=== PATIENT | male | born 1955 | race Caucasian/White ===

== ENCOUNTER 2017-12-23 10:54 | Day surgery (SDC) | payer BC ==
[2017-12-23 11:15] VITALS: BP 119/68
[2017-12-23] MEDS ORDERED: METO-539 PO (11:34)
[2017-12-23] MEDS ORDERED: DULO-31 PO (11:34)
[2017-12-23] MEDS ORDERED: METF500T PO (11:34)
[2017-12-23] MEDS ORDERED: ACET-2119 PO (11:34)
[2017-12-23] MEDS ORDERED: FLEC100T2 PO (11:34)
[2017-12-23] MEDS ORDERED: APIX5TAB3 PO (11:34)
[2017-12-23] MEDS ORDERED: TRAZ-143 PO (11:34)
== END 2017-12-23 11:00 | disposition home or self-care (01) ==
LOC: SSTAY O 10:54
PROVIDERS: ATTEND Internal Medicine Interventional Cardiology
DX: I48.91 Unspecified atrial fibrillation (principal); Z53.09 Procedure and treatment not carried out because of other contraindication; E11.9 Type 2 diabetes mellitus without complications; B18.2 Chronic viral hepatitis C
CPT/HCPCS: 93005; A4620; J7030

== ENCOUNTER 2018-01-27 09:49 | Day surgery (SDC) | payer OTHER ==
[~2018-01-27 09:49] MED LIST: ACET-2119 PO; APIX5TAB3 PO; DULO-31 PO; FLEC100T2 PO; METF500T PO; METO-539 PO; TRAZ-143 PO
[2018-01-27] MEDS ORDERED: INSU100C10 SQ (10:12)
[2018-01-27 10:13] VITALS: BP 130/79
== END 2018-01-27 10:50 | disposition home or self-care (01) ==
LOC: SSTAY O 09:49
PROVIDERS: ATTEND Internal Medicine Interventional Cardiology
DX: I48.3 Typical atrial flutter (principal); E11.9 Type 2 diabetes mellitus without complications; Z86.19 Personal history of other infectious and parasitic diseases; Z79.4 Long term (current) use of insulin; Z79.899 Other long term (current) drug therapy; Z53.8 Procedure and treatment not carried out for other reasons
CPT/HCPCS: 93005; A4620; J7030

== ENCOUNTER 2018-09-04 09:51 | Emergency (ER) | payer OTHER ==
[~2018-09-04] VITALS: Ht 170.2 cm; Wt 79.1 kg
[~2018-09-04 09:51] MED LIST changes: +INSU100C10 SQ; -TRAZ-143 PO; +TRAZ-218 PO
[2018-09-04 10:57] LABS: ALBUMIN 3.6 G/DL (3.4-5.0); ANION GAP 18 (8-16); BILIRUBIN,TOTAL 0.3 MG/DL (0.1-1.0); BLOOD UREA NITROGEN 19 MG/DL (7-18); BUN/CREATININE RATIO 25.3 (5.4-32.0); CALCIUM 9.2 MG/DL (8.5-10.1); CHLORIDE 98 MMOL/L (99-107); CREATININE 0.75 MG/DL (0.60-1.10); GLUCOSE 196 MG/DL (70-104); POTASSIUM 3.4 MMOL/L (3.5-5.1); SODIUM 136 MMOL/L (135-145); TOTAL CARBON DIOXIDE 20.4 MMOL/L (24-32); TOTAL PROTEIN 8.1 G/DL (6.4-8.2); eGFR > 90 ML/MIN
[2018-09-04 10:58] LABS: ALANINE AMINOTRANSFERASE 42 U/L (12-78); ALBUMIN/GLOBULIN RATIO 0.8 (1.1-1.5); ALKALINE PHOSPHATASE 111 IU/L (46-116); ASPARTATE AMINO TRANSFERASE 45 U/L (10-37)
[2018-09-04 11:04] LABS: MAGNESIUM 1.7 MG/DL (1.5-2.4)
[2018-09-04 11:08] LABS: BASOPHILS % (AUTO) 0.2 % (0-1); EOSINOPHILS # (AUTO) 0.2 X10'3 (0-0.9); EOSINOPHILS % (AUTO) 2.2 % (0-6); HEMATOCRIT 41.8 % (42.0-52.0); HEMOGLOBIN 13.2 g/dl (14.0-17.9); LYMPHOCYTES # (AUTO) 1.7 X10'3 (1.1-4.8); MEAN CORPUSCULAR HEMOGLOBIN 22.3 PG (27.0-31.0); MEAN CORPUSCULAR HGB CONC 31.5 % (33.0-36.5); MEAN CORPUSCULAR VOLUME 70.8 FL (78-98); MEAN PLATELET VOLUME 8.2 FL (7.4-10.4); MONOCYTES # (AUTO) 1.1 X10'3 (0-0.9); MONOCYTES % (AUTO) 10.4 % (2-12); NEUTROPHILS # (AUTO) 7.5 X10'3 (1.8-7.7); NEUTROPHILS % (AUTO) 71.2 % (42-75); PLATELET COUNT 392 X10'3 (140-440); RED BLOOD COUNT 5.91 X10'6 (4.70-6.10); RED CELL DISTRIBUTION WIDTH 19.6 % (11.5-14.5); WHITE BLOOD COUNT 10.5 X10'3 (4.5-11.0)
[2018-09-04 11:27] VITALS: BP 126/72
== END 2018-09-04 11:37 | disposition home or self-care (01) ==
LOC: ER 09:52
DX: I48.91 Unspecified atrial fibrillation (principal); J06.9 Acute upper respiratory infection, unspecified; Z79.84 Long term (current) use of oral hypoglycemic drugs; Z79.899 Other long term (current) drug therapy
CPT/HCPCS: 36415; 71046; 80053; 83735; 83880; 84484; 85025; 93005; 99284

== ENCOUNTER 2019-02-06 13:29 | Emergency (ER) | payer OTHER ==
[~2019-02-06] VITALS: Ht 170.2 cm; Wt 81.0 kg
[~2019-02-06 13:29] MED LIST changes: -DULO-31 PO; -INSU100C10 SQ; -TRAZ-218 PO; +TRAZ-251 PO
[2019-02-06] MEDS ORDERED: ondansetron/PF 4mg/2ml inj IV ONE ×2 (14:30→14:40)
[2019-02-06] MEDS ORDERED: morphine 4 MG/ML inj SYRINge IV ONE ×2 (14:30→14:40)
[2019-02-06 15:08] LABS: BASOPHILS # (AUTO) 0.1 X10'3 (0-0.2); BASOPHILS % (AUTO) 1.3 % (0-1); EOSINOPHILS # (AUTO) 0.1 X10'3 (0-0.9); EOSINOPHILS % (AUTO) 1.3 % (0-6); HEMATOCRIT 35.6 % (42.0-52.0); HEMOGLOBIN 11.5 g/dl (14.0-17.9); LYMPHOCYTES # (AUTO) 1.7 X10'3 (1.1-4.8); MEAN CORPUSCULAR HEMOGLOBIN 25.6 PG (27.0-31.0); MEAN CORPUSCULAR HGB CONC 32.4 g/dL (33.0-36.5); MEAN CORPUSCULAR VOLUME 78.9 FL (78-98); MEAN PLATELET VOLUME 7.5 FL (7.4-10.4); MONOCYTES # (AUTO) 1.1 X10'3 (0-0.9); MONOCYTES % (AUTO) 11.8 % (2-12); NEUTROPHILS % (AUTO) 66.6 % (42-75); PLATELET COUNT 470 X10'3 (140-440); RED BLOOD COUNT 4.51 X10'6 (4.70-6.10); RED CELL DISTRIBUTION WIDTH 22.8 % (11.5-14.5)
[2019-02-06 15:10] LABS: PARTIAL THROMBOPLASTIN TIME 26 SECONDS (22-32)
[2019-02-06 15:12] LABS: ALANINE AMINOTRANSFERASE 37 U/L (12-78); ALBUMIN/GLOBULIN RATIO 1.1 (1.1-1.5); ALKALINE PHOSPHATASE 124 IU/L (46-116); ANION GAP 10 (8-16); ASPARTATE AMINO TRANSFERASE 26 U/L (10-37); BILIRUBIN,TOTAL 0.6 MG/DL (0.1-1.0); BLOOD UREA NITROGEN 29 MG/DL (7-18); BUN/CREATININE RATIO 34.1 (5.4-32.0); CALCIUM 9.5 MG/DL (8.5-10.1); CHLORIDE 105 MMOL/L (99-107); CREATININE 0.85 MG/DL (0.60-1.10); GLUCOSE 175 MG/DL (70-104); POTASSIUM 4.3 MMOL/L (3.5-5.1); SODIUM 138 MMOL/L (135-145); TOTAL CARBON DIOXIDE 23.3 MMOL/L (24-32); TOTAL PROTEIN 7.7 G/DL (6.4-8.2); eGFR > 90 ML/MIN
[2019-02-06] MEDS ORDERED: iohexol 350MG/ML 100ml bottle IV ONE (15:20)
[2019-02-06 15:38] LABS: ANISOCYTOSIS 3+; ELLIPTOCYTES FEW; HYPOCHROMASIA 1+; MICROCYTOSIS 1+; PLATELET ESTIMATE INCREASED; POLYCHROMASIA FEW; SCHISTOCYTES FEW
[2019-02-06] MEDS ORDERED: MESSAGE TO NURSING PO NR (15:42)
[2019-02-06 16:40] VITALS: BP 152/68
[2019-02-06] MEDS ORDERED: DULO30CA51 PO (16:43)
[2019-02-06] MEDS ORDERED: HYDR-4383 PO (17:06)
== END 2019-02-06 17:35 | disposition home or self-care (01) ==
LOC: ER 13:30
DX: S87.81XA Crushing injury of right lower leg, initial encounter (principal); I48.91 Unspecified atrial fibrillation; E11.9 Type 2 diabetes mellitus without complications; Z79.84 Long term (current) use of oral hypoglycemic drugs; Z79.899 Other long term (current) drug therapy; W31.89XA Contact with other specified machinery, initial encounter; Y93.89 Activity, other specified; Y92.89 Other specified places as the place of occurrence of the external cause; Y99.8 Other external cause status
CPT/HCPCS: 36415; 73706; 80053; 85025; 85610; 85730; 96374; 96375; 99284; J2270; J2405; Q9967